=== PATIENT | female | born 1975 | race Two or more races ===

== ENCOUNTER 2018-06-16 06:37 | Emergency (ER) | payer SELFPAY ==
[~2018-06-16] VITALS: Ht 160 cm; Wt 70.8 kg
[2018-06-16 06:39] VITALS: BP 125/72
--- NOTE | 2018-06-16 06:45 | NUR ---
PT PRESENTS TO ED WITH C/O LUQ PAIN RADAITING TO BACK 2 HRS WITH N/V. PT REPORTS SUDDEN ONSET. BOWEL SOUNDS ACTIVE TO ALL QUADRANTS. PT DENIES PAIN UPON PALPATION. PT PLACED INTO BED, PENDING MD AGARWAL. ER MD MADE AWARE OF PT STATUS. PMH--DENIES RX--DENIES
[2018-06-16] MEDS ORDERED: NACL 0.9% 1,000 ML IV ONE (06:47)
[2018-06-16] MEDS ORDERED: ONDANSETRON 4 MG/2 ML VIAL IVP ONE (06:50)
[2018-06-16] MEDS ORDERED: MORPHINE SULFATE 4 MG/ML SYR IVP ONE ×2 (06:50→08:15)
[2018-06-16] MEDS ORDERED: fentaNYL 0.05 MG/ML VIAL IVP ONE (06:55)
--- NOTE | 2018-06-16 07:11 | NUR ---
LABS DRAWN AND WALKED DOWN TO LAB BY RN TO BE PROCESSED.
--- NOTE | 2018-06-16 07:15 | NUR ---
REPORT GIVEN TO ARASH CORDON. TRANSFER OF CARE TO ARASH CORDON.
--- NOTE | 2018-06-16 07:17 | NUR ---
RECEIVED REPORT FROM BAIT PAINTER RN. PT RESTING IN BED A/A/O. DENIES NAUSEA. NO VOMITING NOTED AT THIS TIME. ABDOMEN SOFT, ROUND AND TENDERNESS PRESENT. ACTIVE BOWEL SOUND. SATES SHE HAS ABDOMINAL PAIN 02/27. REASSURANCE DONE. CONTAINER FOR URINE SAMPLE AT BEDSIDE. ENCOURAGED TO PROVIDE URINE SAMPLE FOR THE TEST. CONTINUE TO MONITOR.
[2018-06-16 07:18] LABS: BASOPHILS % (AUTO) 0.4 % (0.0-2.0); EOSINOPHILS # (AUTO) 0.2 K/uL (0-0.4); EOSINOPHILS % (AUTO) 1.4 % (0.0-4.0); HEMATOCRIT 40.1 % (36-48); HEMOGLOBIN 12.9 g/dL (12.0-16.0); LYMPHOCYTES # (AUTO) 1.5 K/uL (2.5-16.5); LYMPHOCYTES % (AUTO) 14.7 % (20.5-51.1); MEAN CORPUSCULAR HEMOGLOBIN 28 pg (27-31); MEAN CORPUSCULAR HGB CONC 32 g/dL (33-37); MEAN CORPUSCULAR VOLUME 85.2 fL (80-94); MONOCYTES # (AUTO) 0.4 K/uL (0.8-1.0); MONOCYTES % (AUTO) 3.9 % (1.7-9.3); NEUTROPHILS # (AUTO) 8.4 K/uL (1.8-7.7); NEUTROPHILS % (AUTO) 79.6 % (42.2-75.2); PLATELET COUNT (AUTO) 272 K/uL (140-450); RED CELL DISTRIBUTION WIDTH 14.2 % (11.6-13.7); WHITE BLOOD COUNT (AUTO) 10.5 K/uL (4.8-10.8)
[2018-06-16 07:35] LABS: ALBUMIN 3.3 g/dL (3.4-5.0); CARBON DIOXIDE 25.8 mmol/L (21-32); CREATININE 0.8 mg/dL (0.6-1.3); POTASSIUM 3.8 mmol/L (3.5-5.1); TOTAL BILIRUBIN 0.3 mg/dL (0.0-1.0)
--- NOTE | 2018-06-16 07:49 | NUR ---
Dr. Vickers at bedside evaluating the patient at this time.
--- NOTE | 2018-06-16 08:45 | NUR ---
PT APPEARS TO BE RELAXED AND RESTING IN BED. VERBALIZED DECREASE IN PAIN. DENIES NAUSEA. NO VOMITING NOTED.
--- NOTE | 2018-06-16 09:01 | NUR ---
Patient discharged with v/s stable. Written and verbal after care instructions given and explained. Patient alert, oriented and verbalized understanding of instructions. Ambulatory with steady gait. All questions addressed prior to discharge. ID band removed. Patient advised to follow up with PMD. Rx of ZOFRAN, NORCO AND MOTRIN given. Patient educated on indication of medication including possible reaction and side effects. Opportunity to ask questions provided and answered.
[2018-06-16 09:04] VITALS: BP 137/68
== END 2018-06-16 09:01 | disposition home or self-care (01) ==
LOC: MED 06:37
DX: R10.12 Left upper quadrant pain (principal); R11.2 Nausea with vomiting, unspecified; Z90.49 Acquired absence of other specified parts of digestive tract
CPT/HCPCS: 36415; 80053; 83690; 85025; 96361; 96374; 96375; 99283; J2270; J2405; J3010; J7030